=== PATIENT | male | born 1965 ===

== ENCOUNTER 2021-11-19 06:38 | Day surgery (SDC) | payer OTHER ==
--- NOTE | 2021-11-16 16:20 | RAD REPORT ---
EXAM DESCRIPTION: RAD - Chest Pa And Lat (2 Views) - 11/16/2021 4:10 pm CLINICAL HISTORY: pre COMPARISON: CHEST SINGLE VIEW dated 11/19/2008 FINDINGS: Lines: None. Lungs: No evidence of edema or pneumonia. Pleural: No significant pleural effusions or pneumothorax. Cardiac: The heart size is within normal limits. Bones: No acute fractures. Other: IMPRESSION: No acute cardiopulmonary disease.
[2021-11-19] MEDS ORDERED: Ringers Lactate 1,000 ML IV ONE (07:17)
[2021-11-19] MEDS ORDERED: ACETAMINOPHEN 500 MG TAB PO ONE (07:47)
[2021-11-19] MEDS: CEFAZOLIN SODIUM 1 GM/VIAL ONE ×3 (07:47→08:25)
[2021-11-19] MEDS ORDERED: CELECOXIB 100 MG CAPSULE PO ONE (07:47)
[2021-11-19 07:49] LABS: Absolute Lymphocytes (CBC) 1.3 K/uL (0.7-4.9); Hematocrit 43.9 % (39.6-49.0); Lymphocytes % 24.7 % (15.3-44.8); MPV 9.1 fL (7.6-11.3); RBC Red Blood Cell Count 4.96 M/uL (4.33-5.43)
[2021-11-19] MEDS ORDERED: CELECOXIB 100 MG CAPSULE ONE (07:54)
[2021-11-19] MEDS ORDERED: ACETAMINOPHEN 500 MG TAB ONE (07:55)
[2021-11-19 08:05] LABS: Potassium 4.3 mmol/L (3.5-5.1)
[2021-11-19] MEDS ORDERED: MIDAZOLAM HCL 2 MG/2 ML INJ ONE (08:20)
[2021-11-19] MEDS ORDERED: LIDOCAINE 1% MPF 5 ML VIAL ONE ×3 (08:20→08:21)
[2021-11-19] MEDS ORDERED: FENTANYL CITR 100 MCG/2 ML ONE (08:20)
[2021-11-19] MEDS ORDERED: propofoL 200 MG/20 ML VIAL IV ONE (08:20)
[2021-11-19] MEDS ORDERED: NS 0.9% VIAL 10 ML ONE (08:29)
[2021-11-19] MEDS ORDERED: dexAMETHasone 10 MG/ML VIAL ONE (08:40)
[2021-11-19] MEDS ORDERED: KETOROLAC 30 MG/ML INJ ONE (08:40)
[2021-11-19] MEDS ORDERED: ONDANSETRON 4 MG/2 ML VIAL ONE (08:42)
[2021-11-19] MEDS ORDERED: HYDROCODONE/APAP 7.5/325 MG TAB PO PRN (09:27)
[2021-11-19 09:35] VITALS: O2SAT 100
--- NOTE | 2021-11-19 10:01 | P.OP ---
Date of Service: 11/19/21 Preop diagnosis: Left inguinal hernia Postop diagnosis: Same Procedure performed: Repair of left inguinal hernia Surgeon: Aneudy Corona MD [employer]ar[employer] Equipment Operator: Racheal SERRA Estimated blood loss: Minimal Specimen: Cord lipoma and hernia sac Findings: As above Anesthesia: General Complications: None Drains: None Fluids and blood products: Nonapplicable Disposition: Recovery room Operative note: Patient brought to the OR and placed in the supine position. General anesthesia begun. Patient prepped and draped in the usual sterile fashion. Marcaine 0.5% infiltrated locally in a field block fashion for postop pain control. 15 blade used to make a 4 cm oblique incision between the left pubic tubercle and the anterior iliac superior spine. Subcutaneous tissue divided. Ruddy's fascia identified and divided. Aponeurosis of the external abdominal oblique muscle identified and mobilized inferiorly to expose the shelving edge. Aponeurosis opened through the external ring. Ilioinguinal inguinal nerve identified and retracted out of the field of dissection. Cord mobilized at the pubic tubercle and skeletonized. A large cord lipoma, as well as a hernia sac, on the anteromedial portion of the cord identified. High ligation of the cord lipoma and hernia sac performed. 2-0 chromic used to tie off the base of the cord lipoma. And 2-0 Prolene suture ligature and freehand tie used to tie off the base of the hernia sac. Both structures excised and sent to pathology as specimen. Marlex mesh plug placed in the internal ring and secured with VersaTack stapler. Onlay mesh placed on the inguinal floor and secured medially to the pubic tubercle, superiorly to the conjoined tendon, inferiorly to the shelving edge and laterally to each other. Cord structures and ilioinguinal nerve placed back in their anatomic location. 2-0 Prolene used to close the aponeurosis. 3-0 chromic used to reapproximate Ruddy's fascia. And 3-0 chromic used to close skin. Wounds were irrigated and bleeding was controlled with cautery prior to the closure of each layer. Sterile dressing applied and patient awakened taken and taken to recovery room in good general condition. CC: Dr. Ferreira and Dr. Rose's office
[2021-11-19 10:27] VITALS: TEMP 97.6
[2021-11-19] MEDS ORDERED: HYDROCODONE/APAP 7.5/325 MG TAB ONE (11:25)
[2021-11-19 11:44] VITALS: BP 129/86
--- NOTE | 2021-11-19 11:56 | EKG ---
Test Date: 2021-11-16 Test Time: 15:52:53 Music Minister: GARRY MEASUREMENT RESULTS: Intervals: Rate: 63 DE: 166 QRSD: 94 QT: 394 QTc: 403 Cliff: P: 58 DE: 166 QRS: 31 T: 36 INTERPRETIVE STATEMENTS: Normal sinus rhythm Normal ECG Compared to ECG 02/04/2014 10:21:50 Sinus bradycardia no longer present Electronically Signed On 11-19-21 11:50:53 CDT by Demian Gonzalez
== END 2021-11-19 11:35 | disposition home or self-care (01) ==
LOC: OR 06:38
PROVIDERS: ATTEND Surgery
PROC: 0YU60JZ Supplement Left Inguinal Region with Synthetic Substitute, Open Approach (ICD-10-PCS; principal; 2021-11-19 08:30)
DX: K40.90 Unilateral inguinal hernia, without obstruction or gangrene, not specified as recurrent (principal); Z20.822 Contact with and (suspected) exposure to COVID-19
CPT/HCPCS: 93005; 85025; 80048; 36415; 88302; 71046; 49505; U0003; J2704; J2250; J3010; J1100; J7120; J2405; J0690